=== PATIENT | female | born 1990 | race African-American/Black ===

== ENCOUNTER 2020-07-15 16:40 | Day surgery (SDC) | payer SELFPAY ==
[2020-07-15] MEDS ORDERED: morphine CARPU-JECT 4 MG/1 ML DISP.SYRIN IVPUSH ONE ×2 (17:27→19:15)
[2020-07-15 17:30] VITALS: BMI 35.9
[2020-07-15] MEDS ORDERED: morphine SULFATE 4 MG/ML VIAL ONE ×2 (17:43→19:16)
[2020-07-15 18:57] LABS: BASO % 0.5 % (0-2.0); EOS % 0.2 % (0-4.5); HEMATOCRIT 38.6 % (32.4-45.2); HEMOGLOBIN 12.9 GM/dL (10.7-15.3); LYMPH % 16.5 % (8-40); MCH 27.2 pg (25.7-33.7); MCHC 33.4 g/dl (32.0-36.0); MEAN CELL VOLUME 81.3 fl (80-96); MEAN PLT VOLUME 8.9 fl (7.5-11.1); MONO % 6.1 % (3.8-10.2); NEUT % 76.7 % (42.8-82.8); PLATELET COUNT 232 K/MM3 (134-434); RBC 4.74 M/mm3 (3.60-5.2); RDW 14.5 % (11.6-15.6); WHITE BLOOD COUNT 9.4 K/mm3 (4.0-10.0)
[2020-07-15] MEDS: morphine CARPU-JECT 4 MG/1 ML DISP.SYRIN IVPUSH ONE ×2 (19:00→19:30)
[2020-07-15 19:17] LABS: CALCIUM 10.1 mg/dL (8.5-10.1)
[2020-07-15 19:18] LABS: ALBUMIN 3.9 g/dl (3.4-5.0); BLOOD UREA NITROGEN 7.8 mg/dL (7-18)
[2020-07-15 19:21] LABS: CREATININE 0.6 mg/dL (0.55-1.3)
[2020-07-15 19:22] LABS: BILIRUBIN,TOTAL 0.5 mg/dL (0.2-1)
[2020-07-15 19:23] LABS: TOT PROT 7.8 g/dl (6.4-8.2)
[2020-07-15 19:36] LABS: EPI CELLS 32 /uL (0-25.1); HYALINE CASTS 2 /uL (0-3.1); URINE APPEARANCE CLOUDY; URINE BACTERIA 399 /uL (0-1359); URINE BILIRUBIN NEGATIVE (NEGATIVE); URINE COLOR ORANGE; URINE GLUCOSE (UA) NEGATIVE (NEGATIVE); URINE KETONE 1+ (NEGATIVE); URINE LEUK ESTERASE TRACE (NEGATIVE); URINE NITRITE NEGATIVE (NEGATIVE); URINE PROTEIN 2+ (NEGATIVE); URINE RBC 4579 /uL (0-23.9); URINE WBC 19 /uL (0-25.8)
[2020-07-15] MEDS ORDERED: KETOROLAC TROMETHAMINE 30 MG/1 ML VIAL IVPUSH ONE (19:54)
[2020-07-15] MEDS ORDERED: LACTATED RINGERS SOLUTION 1,000 ML/1,000 ML INFUS.BAG IV STA (20:27)
[2020-07-15] MEDS ORDERED: KETOROLAC TROMETHAMINE 30 MG/1 ML VIAL ONE (20:56)
[2020-07-16] MEDS ORDERED: ONDANSETRON 4 MG/2 ML VIAL IVPUSH PRN (01:34)
[2020-07-16] MEDS ORDERED: oxyCODONE HCL 5 MG TABLET PO PRN (01:34)
[2020-07-16] MEDS ORDERED: PROMETHAZINE HCL 25 MG/1 ML VIAL IVPUSH PRN (01:34)
[2020-07-16] MEDS ORDERED: MIDAZOLAM HCL 2 MG/2 ML SINGLE DOSE VIAL ONE ×2 (01:41)
[2020-07-16] MEDS ORDERED: PROPOFOL 20 ML ONE ×2 (01:41)
[2020-07-16 09:07] VITALS: BP 121/67; PULSE 68; TEMP 97.8
== END 2020-07-16 14:08 | disposition home or self-care (01) ==
LOC: JER 16:40 → JASUSAT 22:25 → J8W 07-16 03:15 → JASUSAT 07-16 14:08
PROVIDERS: ATTEND Obstetrics & Gynecology
CPT/HCPCS: 36415; 76817-TC; 80053; 81003; 84702; 85025; 86850; 86900; 86901; 87086; 88305-TC; 94760; 99285-25; C9803; U0003; U0005